=== PATIENT | female | born 1990 | race African-American/Black ===

== ENCOUNTER 2020-11-02 14:58 | Emergency (ER) | payer OTHER ==
[~2020-11-02] VITALS: Ht 167.6 cm; Wt 90.7 kg
--- NOTE | 2020-11-02 15:50 | Emergency Room Report ---
History of Present Illness General Chief Complaint: Chest Pain Source: Patient Present Illness HPI Patient is a 30-year-old female past medical history of HIV on antiretrovirals with undetectable viral load and normal CD4 count who presents to the ER complaining of right-sided chest pain. 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 She states that several hours prior to arrival she had right-sided chest and back pain worsened by movement and deep breathing. She states that she feels short of breath. She denies any fever or chills. She denies any cough. She denies any recent travel. She denies any lower extremity pain or edema. She states that she socially smokes marijuana. She states that she is on hormone replacement therapy. No history of pulmonary embolism previously. 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 Patient History Reviewed Nursing Documentation: PMH: Agreed; PSxH: Agreed Nursing Documentation-PMH Past Medical History: No History, Except For Hx Cancer: No - HIV + Review of Systems All Other Systems: negative except mentioned in HPI Physical Exam Vital Signs Date Time Temp Pulse Resp B/P (MAP) Pulse Ox O2 Delivery O2 Flow Rate FiO2 11/02/20 15:13 98.4 118 20 140/89 (106) 100 Room Air Sp02 EP Interpretation: reviewed, normal General Appearance: no apparent distress, alert, GCS 15, non-toxic Head: normocephalic, atraumatic Eyes: bilateral eye normal inspection, bilateral eye PERRL ENT: hearing grossly normal, normal pharynx, no angioedema, normal voice Neck: full range of motion, supple/symm/no masses Respiratory: chest non-tender, lungs clear, normal breath sounds, speaking full sentences Cardiovascular #1: tachycardia Gastrointestinal: normal bowel sounds, non tender, soft, non-distended, no guarding, no rebound, overweight Rectal: deferred Genitourinary: no CVA tenderness Musculoskeletal: normal range of motion, no calf tenderness, no lower extremity edema Neurologic: virologist III-XII nml as tested, oriented x3 Psychiatric: no suicidal/homicidal ideation Skin: no rash Lymphatic: no adenopathy Procedures Critical Care Time Critical Care Time Total critical care time: Approximately 35 minutes. Due to a high probability of clinically significant, life threatening deterioration, the patient required my highest level of preparedness to intervene emergently and I personally spent this critical care time directly and personally managing the patient. This critical care time included obtaining a history; examining the patient; pulse oximetry; ordering and review of studies; arranging urgent treatment with development of a management plan; evaluation of patient's response to treatment; frequent reassessment; and, discussions with other providers.This critical care time was performed to assess and manage the high probability of imminent, life- threatening deterioration that could result in multi-organ failure. It was exclusive of separately billable procedures and treating other patients and teaching time. Please see MDM section and the rest of the note for further information on patient assessment and treatment. Medical Decision Making Diagnostic Impression: Primary Impression: Pulmonary embolism Additional Impression: Mild tetrahydrocannabinol (THC) abuse ER Course Radiologist called stating that patient has right pulmonary embolism. I have ordered for Lovenox. At 5:30 PM I went and spoke with the patient regarding her CT results. She is complaining of persistent pain after Toradol. She is requesting stronger pain medication. She states she had morphine in the past without any issues I spoke with Dr Huang from the patient's insurance. He is accepted the transfer.. EKG Diagnostic Results Troponin ordered: Yes When was troponin ordered?: Nov 02, 2020 EKG Time: 15:38 EP Interpretation: Rhina Coleman MD Rate: normal - 94 bpm Rhythm: NSR ST Segments: no acute changes ASA given to the pt in ED: No Rhythm Strip Diag. Results Rhythm Strip Time: 15:49 EP Interpretation: yes - Rhina Coleman MD Rate: 87 bpm Rhythm: NSR, no PVC's, no ectopy Chest X-Ray Diagnostic Results Chest X-Ray Diagnostic Results : Chest X-Ray Ordered: Yes # of Views/Limited/Complete: 1 View Indication: Chest Pain EP Interpretation: Yes Interpretation: no consolidation, no effusion, no pneumothorax, no acute cardiopulmonary disease Impression: No acute disease Electronically Signed by: Rhina Coleman MD Last Vital Signs Date Time Temp Pulse Resp B/P (MAP) Pulse Ox O2 Delivery O2 Flow Rate FiO2 11/02/20 15:13 98.4 118 20 140/89 (106) 100 Room Air Disposition: ADMITTED INPATIENT - Trasnfer Condition: Critical Physician Consult: Dr. Sal MD at 645 pm Additional Instructions: Please note that this report is being documented using DRAGON technology. This can lead to erroneous entry secondary to incorrect interpretation by the dictating instrument. Rhina Coleman M.D. Nov 02, 2020 15:50
[2020-11-02 15:56] VITALS: BP 140/89
--- NOTE | 2020-11-02 15:59 | NUR ---
ED Nurse Note: pt stated her chest started hurting a couple of hours ago with pain radiating to her back and down her right arm. states she feels sob. placed pt on monitor, iv/labs completed and labs sent. pt doesn't appear to be in any distress. O2 100% on room air.
[2020-11-02] MEDS ORDERED: Ketorolac 30mg Inj IV ONE (16:00)
--- NOTE | 2020-11-02 16:01 | NUR ---
pt only receiving 2700mls of fluid, 3000mls was scanned
[2020-11-02 16:14] LABS: BASOPHILS % (AUTO) 1.1 % (0.0-2.0); EOSINOPHILS % (AUTO) 0.6 % (0.0-3.0); HEMATOCRIT 35.7 % (37.0-47.0); HEMOGLOBIN 11.7 G/DL (12.0-16.0); LYMPHOCYTES % (AUTO) 20.8 % (20.0-45.0); MEAN CORPUSCULAR VOLUME 85 FL (80-99); MONOCYTES % (AUTO) 6.7 % (1.0-10.0); NEUTROPHILS % (AUTO) 70.9 % (45.0-75.0); PLATELET COUNT 310 K/UL (150-450); RED BLOOD COUNT 4.21 M/UL (4.20-5.40); RED CELL DISTRIBUTION WIDTH 16.3 % (11.6-14.8); WHITE BLOOD COUNT 10.2 K/UL (4.8-10.8)
[2020-11-02 16:21] LABS: ANION GAP 8 mmol/L (5-15); BLOOD UREA NITROGEN 6 mg/dL (7-18); CARBON DIOXIDE 26 MMOL/L (21-32); CHLORIDE 105 MMOL/L (98-107); POTASSIUM 3.6 MMOL/L (3.5-5.1); SODIUM 139 MMOL/L (136-145)
[2020-11-02 16:26] LABS: ALANINE AMINOTRANSFERASE 15 U/L (12-78); ALBUMIN 3.6 G/DL (3.4-5.0); ALBUMIN/GLOBULIN RATIO 0.8 (1.0-2.7); ALKALINE PHOSPHATASE 140 U/L (46-116); ASPARTATE AMINO TRANSFERASE 20 U/L (15-37); BILIRUBIN,TOTAL 0.3 MG/DL (0.2-1.0)
--- NOTE | 2020-11-02 16:33 | Diagnostic Imaging Report ---
Procedure: XRAY Chest 1v Reason for study: Chest pain Comparison films: None. FINDINGS: A single one view chest is obtained. Vascularity is normal. The lung everett are clear bilaterally. Cardiac and mediastinal silhouette are within normal limits. CP angles are sharp. The bony thorax appear unremarkable. IMPRESSION: NO ACUTE CARDIOPULMONARY DISEASE.
[2020-11-02] MEDS ORDERED: Omnipaque 350 100ml vial INJ PRN (16:45)
--- NOTE | 2020-11-02 17:29 | Diagnostic Imaging Report ---
EXAM: CT Angiography Chest With Intravenous Contrast CLINICAL HISTORY: SOB TECHNIQUE: Axial computed tomographic angiography images of the chest with intravenous contrast. CTDI is 17.4 mGy and DLP is 594.1 mGy-cm. One or more of the following dose reduction techniques were used: automated exposure control, adjustment of the mA and/or kV according to patient size, use of iterative reconstruction technique. MIP reconstructed images were created and reviewed. COMPARISON: Chest x-ray performed earlier today. FINDINGS: Pulmonary arteries: Best seen on series 8 image 38, there is peripheral pulmonary emboli within branches of the right lower lobe. Central pulmonary arteries are unremarkable. Overall, limited evaluation of the peripheral branch of the pulmonary arteries. Aorta: No acute findings. No thoracic aortic aneurysm. Lungs: Patchy airspace disease is noted at the right lung base. No mass. Pleural space: Unremarkable. No significant effusion. No pneumothorax. Heart: Unremarkable. No cardiomegaly. No significant pericardial effusion. No evidence of RV dysfunction. Bones/joints: Alignment of the thoracic spine is unremarkable. No acute fracture. Soft tissues: Unremarkable. Lymph nodes: Unremarkable. No enlarged lymph nodes. Liver: Mild fatty liver. Other findings: Hypoaeration. Mild to moderate degenerative disc disease. IMPRESSION: 1. Peripheral pulmonary emboli at the right lung base. 2. Subsegmental atelectasis posteriorly at the right lung base. <MYCVCSECTION> Communications: 11/02/20 17:30 Call Doctor Regarding Pulmonary Embolism, called Dr. Coleman on 11/02 17:30 (-08:00)
[2020-11-02] MEDS ORDERED: Enoxaparin 100mg Inj SUBQ SCH (17:30)
[2020-11-02] MEDS ORDERED: Morphine Sulfate 4mg/ml Inj (IV USE ONLY) IVP ONE (17:45)
--- NOTE | 2020-11-02 18:45 | NUR ---
ED Nurse Note: pt appears more comfortable. states that her pain has gone away. addressed pt's questions regarding her PE. pt appeared anxious in regards to it. reassured pt, ivf infusing without difficulty
[2020-11-02 18:56] VITALS: BP 139/96
--- NOTE | 2020-11-02 19:00 | NUR ---
ED Nurse Note: REPORT RECIEVED FROM EVY SALINAS PT AOx4, AMBULATORY, AND STABLE
--- NOTE | 2020-11-02 23:49 | NUR ---
ER DISCHARGE NOTE: Patient is cleared to be TRANSFERRED per [facility], pt is aox4, on room air, with stable vital signs. pt was given dc and prescription instructions, pt was able to verbalize understanding, pt id band and iv intact. pt is able to ambulate with steady gait. pt took all belongings Addendum: 11/02/20 at 2354 by ROYA ER DISCHARGE NOTE: Patient is cleared to be TRANSFERRED per [facility], pt is aox4, on room air, with stable vital signs pt id band and iv intact, transferred to [facility] pt is able to ambulate with steady gait. pt took all belongings,
[2020-11-02 23:58] VITALS: BP 128/82
== END 2020-11-03 | disposition other institution (70) ==
LOC: EMR 16:00
DX: I26.99 Other pulmonary embolism without acute cor pulmonale (principal); F12.10 Cannabis abuse, uncomplicated; Z21 Asymptomatic human immunodeficiency virus [HIV] infection status; Z88.5 Allergy status to narcotic agent; Z88.6 Allergy status to analgesic agent
CPT/HCPCS: 36415; 71045; 71275; 80053; 80307; 83690; 83735; 84484; 85025; 85379; 85610; 85730; 93005; 96361; 96374; 96375; J1650; J1885; J2270; J7030; Q9967; Z7502; 99291